=== PATIENT | female | born 1940 | race Caucasian/White ===

== ENCOUNTER 2017-07-27 18:15 | Emergency (ER) | payer MEDICARE, OTHER ==
[~2017-07-27] VITALS: Ht 162.6 cm; Wt 69.5 kg
[~2017-07-27 18:15] MED LIST: AMOX1TAB10 PO; ASPI325T8 PO; ATEN100T PO; ATOR40TA59 PO; HYDR-2762 PO; LISI40TA PO; MECL12.52 PO
--- NOTE | 2017-07-27 18:19 | ED.ADGEN ---
Past History Past Medical History: Other Past Surgical History: Coronary Bypass Surgery, Other Alcohol Use: Rarely Drug Use: None Adult General Chief Complaint Chief Complaint " I got these bumps on my Lt. wrist.. they don't hurt.. but.. they wanted me to get checked out..." HPI HPI Patient is a 77 year old female from [facility], presents with above hx and complaints development of cyst on her left wrist over the radial artery. Patient's pulses are good, and equal to right hand. Khoi test is intact. Distal neurovascular intact. Patient may have bumped wrist while moving some heavy material last couple days. Area is not warm or inflamed. Cyst s are movable and non-tender. Patient denies any fever or chills. No history immunosuppression. Does have a history of hypertension and coronary artery disease. Review of Systems Review of Systems Constitutional: Denies fever or chills [] Eyes: Denies change in visual acuity, redness, or eye pain [] HENT: Denies nasal congestion or sore throat [] Respiratory: Denies cough or shortness of breath [] Cardiovascular: No additional information not addressed in HPI [] GI: Denies abdominal pain, nausea, vomiting, bloody stools or diarrhea [] : Denies dysuria or hematuria [] Musculoskeletal: Denies back pain or joint pain. Has []complaints of a ganglion cyst left wrist Integument: Denies rash or skin lesions [] Neurologic: Denies headache, focal weakness or sensory changes [] Endocrine: Denies polyuria or polydipsia [] All other systems were reviewed and found to be within normal limits, except as documented in this note. Family History Family History Noncontributory Current Medications Current Medications See nursing for home medications Allergies Allergies Allergies Coded Allergies Type Severity Reaction Last Updated Verified No Known Drug Allergies 04/28/14 No Physical Exam Physical Exam Constitutional: no acute distress, non-toxic appearance. [] HENT: Normocephalic, atraumatic, bilateral external ears normal, oropharynx moist, no oral exudates, nose normal. [] Eyes: PERRLA, EOMI, conjunctiva normal, no discharge. [] Neck: Normal range of motion, no tenderness, supple, no stridor. [] Cardiovascular:Heart rate regular rhythm, no murmur [] Lungs & Thorax: Bilateral breath sounds clear to auscultation []midline sternal scar Abdomen: Bowel sounds normal, soft, no tenderness, no masses, no pulsatile masses. [] Skin: Warm, dry, no erythema, no rash. [] Back: No tenderness, no CVA tenderness. [] Extremities: No tenderness, no cyanosis, no clubbing, ROM intact, no edema. [] Findings of left wrist ganglion Cyst as per HPI. Some arthritic changes noted. Neurologic: Alert and oriented X 3, normal motor function, normal sensory function, no focal deficits noted. [] Psychologic: Affect normal, judgement normal, mood normal. [] Current Patient Data Vital Signs Vital Signs Date Time Temp Pulse Resp B/P (MAP) Pulse Ox O2 Delivery O2 Flow Rate FiO2 07/27/17 18:35 136/63 (87) 07/27/17 18:20 97.7 69 18 95 Room Air EKG EKG [] Radiology/Procedures Radiology/Procedures [] Course & Med Decision Making Course & Med Decision Making Pertinent Labs and Imaging studies reviewed. (See chart for details). Keep follow-up with primary care. Consider follow-up orthopedics for possible removal of cyst. Return if any concerns. [] Final Impression Final Impression 1. Ganglion Cyst Lt wrist. Dragon Disclaimer Dragon Disclaimer This electronic medical record was generated, in whole or in part, using a voice recognition dictation system. NANNETTE BRENNAN MD July 27, 2017 18:19
[2017-07-27 18:35] VITALS: BP 136/63
== END 2017-07-27 18:49 | disposition home or self-care (01) ==
LOC: ER 18:15
DX: M67.432 Ganglion, left wrist (principal); I10 Essential (primary) hypertension; I25.810 Atherosclerosis of coronary artery bypass graft(s) without angina pectoris
CPT/HCPCS: 99281